=== PATIENT | female | born 1995 | race Caucasian/White ===

== ENCOUNTER 2022-03-24 13:52 | Emergency (ER) | payer OTHER, SELFPAY ==
[2022-03-24 14:20] VITALS: BP 109/66; PULSE 93; RESP 16; TEMP 37.1; O2SAT 99
--- NOTE | 2022-03-24 14:41 | ED.ANIMALBIT ---
HPI - Animal Bite General Chief Complaint: Animal Bite Stated Complaint: Dog Bite Time Seen by Provider: 03/24/22 14:28 Source: patient, RN notes reviewed and old records reviewed Mode of arrival: ambulatory Limitations: no limitations History of Present Illness HPI narrative: 27-year-old female presents to the [facility] with a dog bite to the left ear. States that happen just prior to arrival by her neighbor's dog. Bleeding is controlled. MD complaint: animal bite Related Data Home Medications Medication Instructions Recorded Confirmed medroxyprogesterone 150 mg/mL 1 mg IM DIRECTED 03/24/22 03/24/22 intramuscular syringe Allergies Allergy/AdvReac Type Severity Reaction Status Date / Time amoxicillin [From Amoxil] Allergy Rash Verified 03/24/22 14:37 Review of Systems Review of Systems: All systems reviewed & are unremarkable except as noted in HPI and below Constitutional: Constitutional: Reports no additional constitutional complaints, Denies chills and Denies fever(s) Eyes: Eyes: Reports no additional eye complaints ENT: Reports as per HPI (Puncture/laceration, dog bite left ear) Cardiovascular: Cardiovascular: Reports no additional cardiovascular complaints Respiratory: Respiratory: Reports no additional respiratory complaints Gastrointestinal: Gastrointestinal: Reports no additional gastrointestinal complaints Musculoskeletal: Musculoskeletal: Reports no additional musculoskeletal complaints Integumentary/Breasts: Skin/Breast: Reports as per HPI Neurologic: Reports system reviewed and no additional complaints, except as documented Psychiatric: Psychiatric: Reports no additional psychiatric complaints Allergic/Immunologic: Allergic/Immunologic: Reports no additional allergic/immunologic complaints PMFSH Comments At the time of my signature, I reviewed and agree with the nursing past medical, surgical, social, and family history. There is no relevant family history pertinent to the patient complaint. Exam Const: General: healthy appearing, comfortable, no acute distress, well developed, alert and well nourished Nutritional Appearance: well nourished Orientation/consciousness: patient oriented x3 Limitations: no limitations HENMT: Head: normal to inspection Ears: external ears normal Outer ear/TM images: 1. 1-1/2 cm through and through laceration/puncture 2. 2 cm dog bite Face/Nose/Sinus: Normal external nose present Face and sinus: normal facial exam Throat: posterior oropharynx normal Eyes: General: appearance normal, both eyes and all related structures Conjunctivae: conjunctivae normal Pupils: Equal, round and reactive pupils present Neck: Neck: normal visual inspection, full ROM, no lymphadenopathy and no meningeal signs Chest: Chest palpation & inspection: normal inspection of the chest Resp: Effort & Inspection: normal respiratory effort and no use of accessory muscles Auscultation: clear to auscultation bilaterally, no crackles, no rales, no rhonchi and no wheezes Cardio: Rate: regular rate Rhythm: regular rhythm Back/Spine/Pelvis: Cervical Spine: cervical ROM normal and No Cervical spine tenderness Thoracic/Lumbar Spine: thoracic and lumbar spine normal to inspection and thoraco-lumbar ROM normal Skin: General skin exam: normal color Rashes: no rashes Wounds: no wounds Neuro: General: patient oriented x3, moves all extremities, no meningeal signs and no focal motor deficits Cranial nerves: Yes Equal, round and reactive pupils present Speech: normal speech Gait exam (Neuro): Normal gait present Extrem: General: normal to inspection, full ROM and capillary refill normal Psych: Appearance: grossly normal and well kempt Mental Status: mental status grossly normal Affect: normal affect Attitude: cooperative Thought content: Yes Normal thought content present Course Course Emergency Course: 1430 Called [facility], patient request for transfer for
== END 2022-03-24 14:49 | disposition short-term general hospital (02) ==
PROVIDERS: Emergency Provider Nurse Practitioner
DX: S01.312A Laceration without foreign body of left ear, initial encounter (principal); S01.332A Puncture wound without foreign body of left ear, initial encounter; W54.0XXA Bitten by dog, initial encounter
CPT/HCPCS: 99202; G0463

== ENCOUNTER 2023-02-12 13:37 | Emergency (ER) | payer OTHER, SELFPAY ==
[2023-02-12 14:23] VITALS: BP 119/74; PULSE 78; RESP 20; TEMP 37.1; O2SAT 100
--- NOTE | 2023-02-12 14:51 | ED.URI ---
HPI - URI/Sore Throat General Chief Complaint: Upper Respiratory Infection Stated Complaint: flu symptoms [id number] Time Seen by Provider: 02/12/23 13:40 Source: patient Mode of arrival: ambulatory Limitations: no limitations History of Present Illness HPI Narrative: 28-year-old female presents to [facility] with complaints of headache, body aches, runny nose, headache, nasal congestion, cough and bilateral ear pressure for the past 3 weeks. Patient reports that she has been taking [id number] DayQuil, NyQuil Motrin and Tylenol with minimal relief. Patient denies sick contacts. Patient denies recent travel. Patient is nonsmoker. MD elicited complaint: cough, rhinorrhea and nasal congestion Onset (ago): week(s) (3) Able to tolerate fluids by mouth: Yes Exacerbating factors: nothing Treatments prior to arrival: acetaminophen, ibuprofen and cold medicine Related Data Home Medications Medication Instructions Recorded Confirmed medroxyprogesterone 150 mg/mL 1 mg IM DIRECTED 03/24/22 02/12/23 intramuscular syringe Allergies Allergy/AdvReac Type Severity Reaction Status Date / Time amoxicillin [From Amoxil] Allergy Rash Verified 02/12/23 14:22 Review of Systems Constitutional: Constitutional: Denies chills, Denies fatigue, Denies fever(s) and Denies weakness Comments: body aches ENT: Denies vertigo, Denies dizziness, Denies epistaxis, Reports nasal congestion and Denies sore throat Comments: Bilateral ear pressure, runny nose Cardiovascular: Cardiovascular: Denies chest pain Respiratory: Respiratory: Reports cough, Denies dyspnea and Denies wheezing Gastrointestinal: Gastrointestinal: Denies diarrhea, Denies nausea and Denies vomiting Musculoskeletal: Musculoskeletal: Denies arthralgias and Denies joint swelling Integumentary/Breasts: Skin/Breast: Denies erythema and Denies rash Neurologic: Denies vertigo, Denies dizziness, Denies syncope and Denies headache(s) PMFSH Comments At time of signature, I agree with nursing past medical, surgical, social and family history. There is no relevant family history pertinent to the presenting complaint. Exam Const: General: healthy appearing and no acute distress Nutritional Appearance: well nourished Orientation/consciousness: patient oriented x3 Limitations: no limitations HENMT: Head: normal to inspection Ears: external ears normal, EAC's normal and TM abnormal dull on the right and erythematous on the right Teeth and gingiva: dentition normal Throat: posterior oropharynx normal and uvula midline Other: bilateral moderate nasal congestion noted Eyes: Conjunctivae: conjunctivae normal Neck: Neck: normal visual inspection Resp: Effort & Inspection: normal respiratory effort and not labored Auscultation: clear to auscultation bilaterally, no crackles, no rales, no rhonchi and no wheezes Cardio: Rate: regular rate Rhythm: regular rhythm Heart sounds: no murmurs Skin: General skin exam: normal color Rashes: no rashes Wounds: no wounds Neuro: General: patient oriented x3 Speech: normal speech Gait exam (Neuro): Normal gait present Psych: Affect: normal affect Attitude: cooperative Course Course Level of Care: Express Care Visit Vital Signs Vital signs: Vital Signs Temperature 37.1 C 02/12/23 14:23 Pulse Rate 78 02/12/23 14:23 Respiratory Rate 20 02/12/23 14:23 Blood Pressure 119/74 02/12/23 14:23 Pulse Oximetry 100 02/12/23 14:23 Oxygen Delivery Room Air 02/12/23 14:23 Temperature 37.1 C 02/12/23 14:23 Pulse Rate 78 02/12/23 14:23 Respiratory Rate 20 02/12/23 14:23 Blood Pressure 119/74 02/12/23 14:23 Pulse Oximetry 100 02/12/23 14:23 Oxygen Delivery Room Air 02/12/23 14:23 MDM - URI/Sore Throat MDM Narrative Medical decision making narrative: due to symptoms being present for greater than 72 hours, noting fluids prescribed at this time. Will treat annie
== END 2023-02-12 15:21 | disposition home or self-care (01) ==
PROVIDERS: Emergency Provider Nurse Practitioner Family
DX: J11.1 Influenza due to unidentified influenza virus with other respiratory manifestations (principal); H66.90 Otitis media, unspecified, unspecified ear
CPT/HCPCS: 87804; 99213; G0463

== ENCOUNTER 2023-02-19 13:16 | Emergency (ER) | payer OTHER, SELFPAY ==
--- NOTE | ~2023-02-19 | XR_ITS ---
EXAMINATION: XR chest 2V 02/19/2023 13:51 INDICATION: Diminished lung sounds PROCEDURE: 2 view chest COMPARISON: No prior studies for comparison. FINDINGS: The lungs are clear. The cardiomediastinal silhouette is within normal limits. There are no pleural effusions. There is no pneumothorax suspected. IMPRESSION: 1: NO ACUTE CARDIOPULMONARY DISEASE. Reviewed, dictated and finalized at location [facility].
[2023-02-19 13:30] VITALS: BP 123/70; PULSE 106; RESP 16; TEMP 37; O2SAT 99
--- NOTE | 2023-02-19 13:36 | ED.URI ---
HPI - URI/Sore Throat General Chief Complaint: Upper Respiratory Infection Stated Complaint: shortness of breathe,wheezing Time Seen by Provider: 02/19/23 13:37 Source: patient Mode of arrival: ambulatory Limitations: no limitations History of Present Illness HPI Narrative: 28-year-old female presents with complaint of cough, wheezing and shortness of breath over the last several days, worse today. Patient reports diagnosed with flu 1 week ago. Patient took steroids and antibiotic due to ear infection. Afebrile today. Reports history of exercise induced asthma. No respiratory distress noted. All systems reviewed and negative except as noted above. Related Data Home Medications Medication Instructions Recorded Confirmed medroxyprogesterone 150 mg/mL 1 mg IM DIRECTED 03/24/22 02/12/23 intramuscular syringe Allergies Allergy/AdvReac Type Severity Reaction Status Date / Time amoxicillin [From Amoxil] Allergy Rash Verified 02/12/23 14:22 Review of Systems Review of Systems: CONSTITUTIONAL: Denies fever, chills, or sweats. EYES: Denies visual changes, redness, or discharge. ENT: Denies rhinorrhea, congestion, sore throat, or otalgia. CARDIOVASCULAR: Denies chest pain, palpitations, or edema. RESPIRATORY: Reports cough. Denies dyspnea. GASTROINTESTINAL: Denies abdominal pain, nausea, vomiting, or diarrhea. GENITOURINARY: Denies dysuria or hematuria. SKIN: Denies rash or itching. MUSCULOSKELETAL: Denies back pain, joint pain, or myalgia. NEUROLOGIC: Denies headache, numbness, or weakness. PSYCHIATRIC: Denies anxiety or depression. All other systems reviewed are negative, except as documented in HPI. PMFSH Comments At time of signature, agree with nursing past medical, surgical, social and family history. There is no relevant family history pertinent to the presenting complaint. Exam Narrative: GENERAL: This is a well-nourished, well-developed patient, in no apparent distress. HEAD: normocephalic, atraumatic. EYES: PERRL. Sclera clear/white. Vision is grossly intact. EARS: External ears normal, auditory canals clear and without drainage, TMs normal without perforation. Hearing grossly intact. NOSE: External nose normal with no obvious nasal discharge, nares without redness, no rhinorrhea. THROAT: Mucous membranes moist, posterior pharynx clear. NECK: Neck supple, non-tender without lymphadenopathy, masses or thyromegaly. CARDIOVASCULAR: Regular rate and rhythm without murmurs, gallops, or rubs. RESPIRATORY: decreased throughout all lung pastrana. No wheezes, rales, or rhonchi. SKIN: warm, Dry, intact with no suspicious lesions or rash, good texture and turgor. NEURO: awake, alert, and oriented to person, place and time. There were no obvious focal neurologic abnormalities. EXTREMITIES: No joint tenderness, effusion, or edema noted. Course Course Level of Care: Express Care Visit Reevaluation(s) Reevaluation #1: lungs clear to auscultation after duoneb. Vital Signs Vital signs: Vital Signs Temperature 37.0 C 02/19/23 13:30 Pulse Rate 106 H 02/19/23 13:30 Respiratory Rate 16 02/19/23 13:30 Blood Pressure 123/70 02/19/23 13:30 Pulse Oximetry 99 02/19/23 13:30 Oxygen Delivery Room Air 02/19/23 13:30 Temperature 37.0 C 02/19/23 13:30 Pulse Rate 106 H 02/19/23 13:30 Respiratory Rate 16 02/19/23 13:30 Blood Pressure 123/70 02/19/23 13:30 Pulse Oximetry 99 02/19/23 13:30 Oxygen Delivery Room Air 02/19/23 13:30 Reviewed MDM - URI/Sore Throat MDM Narrative Medical decision making narrative: Patient is aware of diagnosis, understands and agrees to treatment plan. Anticipatory guidance given. Patient agrees to follow-up as directed and is aware of reasons to seek care at the emergency department. Portions of this record may have been created with voice recognition software Differential Diagnosis Differential diagnosis: Likely bronchit
[2023-02-19 13:56] VITALS: PULSE 106; RESP 16; O2SAT 99
[2023-02-19] MEDS: IPRATROPIUM BR 0.02% INH SOLN 0.5 MG/2.5 ML VIAL INHALATION (13:56)
[2023-02-19] MEDS: ALBUTEROL SULFATE NEB 2.5 MG/3 ML INH INHALATION (13:57)
[2023-02-19 14:26] VITALS: PULSE 111; RESP 18; O2SAT 100
== END 2023-02-19 14:26 | disposition home or self-care (01) ==
PROVIDERS: Emergency Provider Nurse Practitioner Family
DX: J20.9 Acute bronchitis, unspecified (principal); J45.990 Exercise induced bronchospasm
CPT/HCPCS: 71046; 94640; 99213; G0463

== ENCOUNTER 2023-03-08 13:38 | Emergency (ER) | payer OTHER, SELFPAY ==
[2023-03-08 13:50] VITALS: BP 124/69; PULSE 99; RESP 16; TEMP 36.6; O2SAT 99
[2023-03-08] MEDS: HYDROcodone/acetaminophen (*CRX) 7.5-325 MG TABLET 1 TAB PO (16:17)
--- NOTE | 2023-03-08 17:19 | ED.LOWEXIN ---
HPI - Extremity Injury (Lower) General Chief Complaint: Extremity Injury, Lower Stated Complaint: L ankle pain yest- pain Time Seen by Provider: 03/08/23 14:15 Source: patient and other (partner) Limitations: no limitations History of Present Illness HPI Narrative: Patient presents with complaint of left lower extremity pain. She has a history of surgery on this ankle 3 months ago and underwent revision of the left ankle yesterday with Dr Bernabe Parada at the [facility] in [facility]. She was sent home with Percocet and muscle relaxer. She took these last night and they made her drowsy but she continues to have pain. She trialed these medications and continued to have pain. She called the clinic and was advised to take ibuprofen. She states yesterday before she was discharged she had a nerve block and was also given morphine during surgery. Related Data Home Medications Medication Instructions Recorded Confirmed medroxyprogesterone 150 mg/mL 1 mg IM DIRECTED 03/24/22 02/12/23 intramuscular syringe Allergies Allergy/AdvReac Type Severity Reaction Status Date / Time amoxicillin [From Amoxil] Allergy Rash Verified 03/08/23 13:54 [facility] Surgical History Surgical History (Updated 03/10/23 @ 13:54 by Magda Vaughn MD) History of ankle surgery Left 2022 with revision February 2023 Exam Const: General: healthy appearing, no acute distress and alert; No confusion, diaphoretic or ill appearing Nutritional Appearance: well nourished Orientation/consciousness: patient oriented x3 Limitations: no limitations HENMT: Head: normal to inspection, no contusions, no hematomas and no lacerations Other: gross auditory acuity intact Eyes: Conjunctivae: conjunctivae normal Neck: Neck: normal visual inspection Resp: Effort & Inspection: normal respiratory effort, not labored, no retractions, not tachypneic and no use of accessory muscles Cardio: Rate: regular rate Other: Palpable DP pulse Skin: Other: Gauze bandage covering wound has blood with some strikethrough of blood on overlying FREDO wrap Neuro: General: patient oriented x3 Speech: normal speech Other: Ambulates with ease with left leg in walking boot Extrem: General: no pedal edema Other: Fredo wrap and additional dressings taken down. Compartments soft. Sensation intact to gross touch throughout foot. Small dressing directly overlying surgical wound not removed but the rest of the dressings are taken down. no evidence of active bleeding. Psych: Mental Status: mental status grossly normal Affect: normal affect Attitude: cooperative Course Vital Signs Vital signs: Vital Signs Temperature 97.9 F 03/08/23 13:50 Pulse Rate 99 03/08/23 13:50 Respiratory Rate 16 03/08/23 13:50 Blood Pressure 124/69 03/08/23 13:50 Pulse Oximetry 99 03/08/23 13:50 Temperature 97.9 F 03/08/23 13:50 Pulse Rate 65 03/08/23 17:51 Respiratory Rate 17 03/08/23 17:51 Blood Pressure 116/72 03/08/23 17:51 Pulse Oximetry 98 03/08/23 17:51 MDM - Extremity Injury (Lower) MDM Narrative Medical decision making narrative: Patient is a 28 year old with PMH left ankle surgery 3 months ago followed by a revision at [facility] in [facility] yesterday. She received morphine delia-operatively as well as a nerve block. She was sent home with Percocet and a muscle relaxer. She continued to have pain and clinic told her to take ibuprofen. In the ED, she presents with some evidence of bleeding from the surgical site but otherwise with bleeding controlled. Neurovascularly intact with soft compartments. Patient given [place] for analgesia. We did attempt to contact her surgeon, Dr. Bernabe Parada, directly given her current follow up is scheduled for 03/19 and I believe she would benefit from an earlier follow up to discuss expectations of post-operative pain and subsequen
[2023-03-08 17:51] VITALS: BP 116/72; PULSE 65; RESP 17; O2SAT 98
== END 2023-03-08 17:52 | disposition home or self-care (01) ==
PROVIDERS: Emergency Provider Student in an Organized Health Care Education/Training Program
DX: G89.18 Other acute postprocedural pain (principal); M79.605 Pain in left leg
CPT/HCPCS: 99283; A9270

== ENCOUNTER 2023-05-10 06:37 | Emergency (ER) | payer OTHER, SELFPAY ==
--- NOTE | ~2023-05-10 | US_ITS ---
US pelvic complete w TV DATE: 05/10/2023 08:49 INDICATION: Pelvic pain TECHNIQUE: COMPARISON: None FINDINGS: The uterus measures approximately 8 cm height, 3.1 cm AP and 4.1 cm transverse dimension wi th central endometrial complex measuring 4 mm AP dimension. Right ovary 2.8 x 2.3 x 3.1 cm, with vascular flow. There is a 2 x 1.7 cm right ovarian cyst. Left ovary measures 2 x 1.8 x 1.8 cm, with vascular flow. Multiple follicles are seen. Minimal likely physiologic free fluid in the posterior cul-de-sac. IMPRESSION: 2 cm right ovarian cyst Reviewed, dictated and finalized at [facility]. Reviewed, dictated and finalized at location L. [employer] IMPRESSION: 2 cm right ovarian cyst
[2023-05-10 06:38] VITALS: BP 111/62; PULSE 84; RESP 18; TEMP 36.8; O2SAT 100
[2023-05-10 07:07] LABS: Basophils Percent Auto 0.3 % (0.2-1.2); Eosinophils Absolute Auto 0.1 K/mm3 (0-0.3); Eosinophils Percent Auto 1.2 % (0-4.4); Hematocrit 41.4 % (37.0-47.0); Immature Granulocyte Absolute 0.02 K/mm3 (0.00-0.031); Immature Granulocyte Percent A 0.2 % (0-0.5); Lymphocytes Absolute Auto 4.74 K/mm3 (0.9-3.2); Lymphocytes Percent Auto 52.8 % (18.3-44.2); Mean Corpuscular HGB Conc 33.8 g/dl (32-36); Mean Corpuscular Volume 94.7 fl (80-100); Mean Platelet Volume 10.7 fl (7.4-10.4); Monocytes Absolute Auto 0.5 K/mm3 (0.1-0.6); Monocytes Percent Auto 5.3 % (2.6-8.5); Neutrophils Absolute Auto 3.6 K/mm3 (1.3-6.7); Neutrophils Percent Auto 40.2 % (45.5-73.1); Platelet Count Result 221 k/mm3 (150-375); Red Blood Count 4.37 M/mm3 (4.2-5.4); Red Cell Distribution Width 11.5 % (11.5-14.5)
[2023-05-10 07:18] LABS: Alanine Aminotransferase 15 U/L (6-35); Albumin Level 4.1 g/dL (3.5-5.1); Alkaline Phosphatase 40 U/L (38-126); Anion Gap 7 mmol/L (8-16); Aspartate Amino Transferase 24 U/L (14-36); Bilirubin,Total 0.6 mg/dL (0.2-1.3); Blood Urea Nitrogen 12 mg/dL (7-17); Calcium 9.2 mg/dL (8.4-10.2); Carbon Dioxide 25 mmol/L (22-30); Chloride 105 mmol/L (98-107); Estimated CRCL calculation 83 ml/min; Estimated Glomerular Filt Rate > 60; Glucose 87 mg/dL (65-110); Lipase 207 U/L (23-300); Potassium 3.5 mmol/L (3.4-5.0); Sodium 137 mmol/L (137-145)
[2023-05-10 07:49] LABS: Appearance Urine Clear (Clear); Bacteria Urine None Seen /hpf; Bilirubin Urine Negative (Negative); Blood Urine Trace (Negative); Color Urine Yellow (Yellow); Glucose Urine UA Negative (Negative); Ketones Urine 1+ mg/dL (Negative); Leukocyte Esterase Ur Negative LEU/UL (Negative); Nitrate Urine Negative (Negative); Non Pathogenic Casts 0-2; Protein Urine Negative (Negative); RBC Urine 0-2 /hpf (0-2); Specific Grav Ur 1.018 (1.001-1.035); Squamous Epithelial Cell Urine None seen /hpf (Few); Urobilinogen Urine 0.2 mg/dL (<2.0); WBC Urine 0-5 /hpf; pH Urine 6.5 (5.0-9.0)
[2023-05-10 07:51] LABS: Add Urine Microscopic? YES
--- NOTE | 2023-05-10 08:24 | PC.NURSE ---
Pt to CT scan via w/c at this time.
[2023-05-10 09:03] VITALS: BP 101/53; PULSE 69; RESP 14; O2SAT 98
--- NOTE | 2023-05-10 10:05 | ED.ABDPAIN ---
HPI - Abdominal Pain General Chief Complaint: Abdominal Pain Stated Complaint: abd pain Time Seen by Provider: 05/10/23 07:03 History of Present Illness HPI narrative: patient is a 28-year-old female who presents ER with lower abdominal pain. Sudden onset this morning. Cramping and sharp. Intermittent in nature. Radiates to the right back. No vaginal bleeding or discharge. No urinary frequency urgency or dysuria. No history kidney stone. Denies history of ovarian cyst. Denies . Related Data Home Medications Medication Instructions Recorded Confirmed medroxyprogesterone 150 mg/mL 1 mg IM DIRECTED 03/24/22 02/12/23 intramuscular syringe Allergies Allergy/AdvReac Type Severity Reaction Status Date / Time amoxicillin [From Amoxil] Allergy Rash Verified 05/10/23 07:04 Review of Systems Review of Systems: All systems reviewed & are unremarkable except as noted in HPI and below Constitutional: Constitutional: Reports no additional constitutional complaints ENT: Reports system reviewed and no additional complaints, except as documented Cardiovascular: Cardiovascular: Reports no additional cardiovascular complaints Respiratory: Respiratory: Reports no additional respiratory complaints Gastrointestinal: Gastrointestinal: Reports abdominal pain, Denies constipation, Denies diarrhea, Denies nausea and Denies vomiting PMFSH Past Medical History Medical History (Updated 05/10/23 @ 18:01 by John Prather MD) Healthy female adult Surgical History Surgical History (Updated 05/10/23 @ 18:01 by John Prather MD) History of ankle surgery Left 2022 with revision February 2023 Exam Narrative: GENERAL: Well-appearing, well-nourished, and in no acute distress. HEAD: Normocephalic, atraumatic. ENT: Mucous membranes moist. CHEST: Clear to auscultation. No respiratory distress. HEART: Regular rate and rhythm. Normal peripheral pulses. ABDOMEN: Soft, nontender, nondistended. EXTREMITIES: Normal range of motion. No edema. SKIN: Warm, dry, no rash. NEURO: Alert and oriented x3. PSYCH: Normal mood and affect. Course Course Emergency Course: patient resting comfortably. Informed of results. Discussed discharge plan patient verbalized understanding. Vital Signs Vital signs: Vital Signs Temperature 98.3 F 05/10/23 06:38 Pulse Rate 84 05/10/23 06:38 Respiratory Rate 18 05/10/23 06:38 Blood Pressure 111/62 05/10/23 06:38 Pulse Oximetry 100 05/10/23 06:38 Oxygen Delivery Room Air 05/10/23 06:38 Temperature 98.3 F 05/10/23 06:38 Pulse Rate 69 05/10/23 09:03 Respiratory Rate 14 05/10/23 09:03 Blood Pressure 101/53 L 05/10/23 09:03 Pulse Oximetry 98 05/10/23 09:03 Oxygen Delivery Room Air 05/10/23 06:38 MDM - Abdominal Pain Lab Data 05/10/23 07:02 05/10/23 07:02 Labs: Lab Results 05/10/23 05/10/23 Range/Units 07:02 07:34 WBC 9.0 (4.5-10.0) K/mm3 RBC 4.37 (4.2-5.4) M/mm3 Hgb 14.0 (12.0-15.0) g/dL Hct 41.4 (37.0-47.0) % MCV 94.7 (80-100) fl MCH 32.0 (26-34) pg MCHC 33.8 (32-36) g/dl RDW 11.5 (11.5-14.5) % Plt Count 221 (150-375) k/mm3 MPV 10.7 H (7.4-10.4) fl Immature Gran % (Auto) 0.2 (0-0.5) % Neut % (Auto) 40.2 L (45.5-73.1) % Lymph % (Auto) 52.8 H (18.3-44.2) % Lewis % (Auto) 5.3 (2.6-8.5) % Eos % (Auto) 1.2 (0-4.4) % Baso % (Auto) 0.3 (0.2-1.2) % Lymph # (Auto) 4.74 H (0.9-3.2) K/mm3 Lewis # (Auto) 0.5 (0.1-0.6) K/mm3 Eos # (Auto) 0.1 (0-0.3) K/mm3 Baso # (Auto) 0.0 (0.0-0.1) K/mm3 Abs Immat Gran (auto) 0.02 (0.00-0.031) K/mm3 Absolute Neuts (auto) 3.6 (1.3-6.7) K/mm3 Absolute Nucleated RBC 0.0 (0.0-0.012) K/mm3 Nucleated RBC % 0.0 (0.0-0.2) % Sodium 137 (137-145) mmol/L Potassium 3.5 (3.4-5.0) mmol/L Chloride 105 (98-107) mmol/L Carbon Dioxide 25 (22-30) mmol/L Anio
== END 2023-05-10 10:28 | disposition home or self-care (01) ==
PROVIDERS: Emergency Medicine; Emergency Provider Emergency Medicine
DX: N83.201 Unspecified ovarian cyst, right side (principal)
CPT/HCPCS: 36415; 76830; 76856; 80053; 81001; 81025; 83690; 85025; 99284

== ENCOUNTER 2024-09-01 15:21 | Emergency (ER) | payer OTHER, SELFPAY ==
--- NOTE | ~2024-09-01 | XR_ITS ---
XR chest 2V Ordering provider: Arlette Bowers APRN History: 29 years Female with . persistent cough, refused to remove piercings . Comparison: February 19, 2023 FINDINGS: MEDIASTINUM: The cardiac silhouette is not enlarged. LUNGS: No infiltrates, effusions or pneumothorax. OTHER: No free air under the diaphragm. IMPRESSION: No acute cardiopulmonary pathology. Reviewed, dictated and finalized at location A.
[2024-09-01 15:33] VITALS: BP 127/78; PULSE 106; RESP 20; TEMP 36.9; O2SAT 99
--- NOTE | 2024-09-01 15:56 | ED_ITS ---
HPI - URI/Sore Throat General Chief Complaint: Upper Respiratory Infection Stated Complaint: Sinus Source: patient Mode of arrival: ambulatory Limitations: no limitations History of Present Illness HPI Narrative: Patient is a 29-year-old female who presents the clinic with complaints of cough persistent for a month. She states that she woke up on Easter with body aches. She started feeling better and then a week ago started again with symptoms. She does have a history of asthma. Denies any shortness of breath, difficulty swallowing, fever, chills. Related Data Home Medications ?Medication ?Instructions ?Recorded ?Confirmed ?Last Taken ?Type medroxyprogesterone 150 mg/mL 1 mg IM DIRECTED 03/24/22 02/12/23 Unknown History intramuscular syringe meloxicam 15 mg tablet mg 09/01/24 Unknown History Allergies Allergy/AdvReac Type Severity Reaction Status Date / Time amoxicillin (From Amoxil) Allergy Rash Verified 09/01/24 15:44 Review of Systems Review of Systems: CONSTITUTIONAL: Denies body aches, fever, chills, or sweats. EYES: Denies visual changes, redness, or discharge. ENT: Denies rhinorrhea, congestion, sore throat, or otalgia. CARDIOVASCULAR: Denies chest pain, palpitations, or edema. RESPIRATORY: Reports cough. Denies dyspnea. GASTROINTESTINAL: Denies abdominal pain, nausea, vomiting, or diarrhea. GENITOURINARY: Denies dysuria or hematuria. SKIN: Denies rash, itching, or wounds. MUSCULOSKELETAL: Denies back pain, joint pain, or myalgia. NEUROLOGIC: Denies headache, numbness, tingling, or weakness. PSYCH: Denies depression or anxiety. All systems reviewed & are unremarkable except as noted in HPI and below PMFSH Past Medical History Medical History (Updated 09/01/24 @ 16:18 by Arlette Bowers APRN) Healthy female adult Surgical History Surgical History (Updated 05/10/23 @ 18:01 by John Prather MD) History of ankle surgery Left 2022 with revision February 2023 Comments At time of signature, I have reviewed and agree with nursing past medical, surgical, social and family history unless otherwise noted. Please see nursing chart for further information. There is no relevant family history pertinent to the presenting complaint. Exam Narrative: GENERAL: Well-appearing, well-nourished, and in no acute distress. EYES: EOMI. No redness or drainage. Conjunctivae normal. ENT: Mucous membranes pink and moist. Nares clear. No rhinorrhea. TMs normal bilaterally. No Throat Erythema. No tonsillar exudate, uvula midline. NECK: Normal AROM. Supple. No lymphadenopathy. CHEST: No respiratory distress. Clear to auscultation. HEART: Regular rate and rhythm. No murmur appreciated. Normal peripheral pulses. ABDOMEN: Soft, nontender, nondistended, normal active bowel sounds. SKIN: Warm, dry, no rash. Capillary refill normal. Normal skin turgor. NEURO: No focal deficits. Alert and oriented x3. Gait steady. PSYCH: Normal affect. No signs of depression or anxiety. Course Course Level of Care: Express Care Visit Vital Signs Vital signs: Vital Signs Temperature 98.5 F 09/01/24 15:33 Pulse Rate 106 H 09/01/24 15:33 Respiratory Rate 20 09/01/24 15:33 Blood Pressure 127/78 09/01/24 15:33 Pulse Oximetry 99 09/01/24 15:33 Oxygen Delivery Room Air 09/01/24 15:33 Temperature 98.5 F 09/01/24 15:33 Pulse Rate 106 H 09/01/24 15:33 Respiratory Rate 20 09/01/24 15:33 Blood Pressure 127/78 09/01/24 15:33 Pulse Oximetry 99 09/01/24 15:33 Oxygen Delivery Room Air 09/01/24 15:33 Reviewed. MDM - URI/Sore Throat MDM Narrative Medical decision making narrative: Discussed physical exam findings and chest xray. Advised supportive measures and signs/symptoms to go to the ER. Pt is appropriate for outpt treatment and follow up. Differential Diagnosis Differential diagnosis: Likely upper respiratory infection, sinusitis and bronchitis Critical Care Time Critical Care Time Critical Care Time: No Discharge Plan Discharge Clinical Impression: Bronchitis Patient Disposition: Home Condition: Stable Instructions: Acute Bronchitis (ED) Additional Instructions: Take steroid as prescribed. Take benzonatate for cough as prescribed. Use inhaler as needed for shortness of breath. Recommend Flonase spray and Zyrtec (or Claritin/Christianne) Tylenol every 8 hours as needed for pain Symptomatic treatment includes: rest, fluids, and increase humidity of the air at home. Follow up with your primary care provider in 1 week. Go to the ER for worsening symptoms or concerns. Patient Language: [place] Prescriptions: New benzonatate 200 mg capsule 200 mg PO BID PRN (Reason: cough) Qty: 20 0RF albuterol sulfate [Ventolin HFA] 90 mcg/actuation HFA aerosol inhaler 2 puff inhalation QID PRN (Reason: shortness of breath or wheezing) Qty: 6.7 0RF prednisone 20 mg tablet 40 mg PO DAILY 5 Days Qty: 10 0RF No Action medroxyprogesterone 150 mg/mL syringe 1 mg IM DIRECTED albuterol sulfate 90 mcg/actuation HFA aerosol inhaler 2 puff inhalation QID PRN (Reason: shortness of breath or wheezing) Qty: 8.5 0RF (DME) Aerochamber Plus Z Stat Spacer See Rx Instructions .Route Qty: 1 0RF Rx Instructions: As directed meloxicam 15 mg tablet Follow-up/Referrals: Myriam Cho [Other] Stand Alone Forms: Work/School Release IP Time of Disposition: 16:19
== END 2024-09-01 16:34 | disposition home or self-care (01) ==
DX: J40 Bronchitis, not specified as acute or chronic (principal); Z79.1 Long term (current) use of non-steroidal anti-inflammatories (NSAID)
CPT/HCPCS: 71046; 99213; G0463